=== PATIENT | female | born 1965 | race Caucasian/White ===

== ENCOUNTER 2018-08-04 21:33 | Emergency (ER) | payer OTHER ==
[~2018-08-04] VITALS: Ht 154.9 cm; Wt 77.1 kg
== END 2018-08-05 00:10 | disposition home or self-care (01) ==
LOC: ER 21:33
DX: S51.822A Laceration with foreign body of left forearm, initial encounter (principal); S51.821A Laceration with foreign body of right forearm, initial encounter; S81.822A Laceration with foreign body, left lower leg, initial encounter; S81.821A Laceration with foreign body, right lower leg, initial encounter; W25.XXXA Contact with sharp glass, initial encounter; Y93.89 Activity, other specified; Y92.59 Other trade areas as the place of occurrence of the external cause; Y99.8 Other external cause status